=== PATIENT | male | born 1990 | race Caucasian/White ===

== ENCOUNTER 2023-11-28 16:39 | Outpatient (CLI) | payer OTHER ==
--- NOTE | 2023-11-29 09:49 | XRAY Report ---
PROCEDURE: Chest 2V INDICATIONS: DRY COUGH TECHNIQUE: 2 views of the chest were acquired. COMPARISON: None. FINDINGS: Surgical changes and devices: None. Lungs and pleura: No pleural effusions or pneumothorax. Lungs are clear. Mediastinum: Mediastinal contours appear normal. Heart size is normal. Bones and chest wall: No suspicious bony lesions. Overlying soft tissues appear unremarkable. IMPRESSION: No acute cardiopulmonary process. Reviewed by: Mac Reilly MD on 11/29/2023 9:47 AM PDT Approved by: Mac Reilly MD on 11/29/2023 9:47 AM PDT Station ID: [id number]
== END 2023-11-28 16:40 | disposition home or self-care (01) ==
LOC: DI 16:39
PROVIDERS: ATTEND Physician Assistant Medical
DX: R05.8 Other specified cough (principal)